=== PATIENT | male | born 1955 | race Caucasian/White ===

== ENCOUNTER 2017-05-22 11:13 | Observation (INO) | payer BC ==
[2017-05-17 14:17] LABS: HEMATOCRIT 47.3 % (40.0-51.0); HEMOGLOBIN 16.6 g/dL (13.6-17.8)
[2017-05-17 14:40] LABS: BUN (BLOOD UREA NITROGEN) 12 MG/DL (6-23); CHLORIDE, SERUM 105 MMOL/L (96-112); CO2 (CARBON DIOXIDE) 28 MMOL/L (24-34); CREATININE 0.93 MG/DL (0.70-1.30); GFR AFRICAN AMERICAN 101 ML/MIN (>=60); GFR NON AFRICAN AMERICAN 87 ML/MIN (>=60); POTASSIUM, SERUM 3.8 MMOL/L (3.5-5.3); SODIUM, SERUM 138 MMOL/L (135-148)
[2017-05-17 14:41] LABS: GLUCOSE, SERUM 126 MG/DL (60-99)
[2017-05-17 19:14] LABS: ASCORBIC ACID (UR NOT ORDER) NEG (NEG); BILIRUBIN, URINE NEGATIVE (NEG); KETONE, URINE NEGATIVE (NEG); LEUKOCYTE ESTERASE(NOT OR NEG (NEG); WBC (NOT ORDERED) (RFLEX) 1 (0-5)
[~2017-05-22] VITALS: Ht 170.2 cm; Wt 100.4 kg
--- NOTE | ~2017-05-22 | OP ---
Record Of Operation [facility] [address] [place]. [address] NAME: ZAINAB BAUER : 51 STATUS : ADM Filomena PAT#: [id number] AGE: 61 ADM/REG DATE : 05/22/17 MR#: [id number] REPORT SERV DATE: 05/22/17 DICTATED BY: SAMI SMITH JR. DATE: 05/22/17 REPORT STATUS : Draft TRANSCRIBED BY: MODMichael DATE: 05/22/17 DATE OF PROCEDURE: 05/22/2017 PREOPERATIVE DIAGNOSES: Phimosis and benign prostatic hyperplasia. POSTOPERATIVE DIAGNOSES: Phimosis, benign prostatic hyperplasia, and urethrocutaneous fistula. PROCEDURES PERFORMED: Circumcision and transurethral resection of the prostate. COMPLICATIONS: None. CONSULTATIONS: None. ANESTHESIA: General with an endotracheal tube. SPECIMENS: Prepuce and prostate chips. DRAINS: A 24-[place] 3-way Islas catheter. ESTIMATED BLOOD LOSS: None. INDICATION: Mr. Bauer is a 61-year-old gentleman who I saw in the office with phimosis and some cracking and pain of the prepuce. I suggested circumcision. However, he wanted to wait on that procedure, but did schedule a TURP for prostate enlargement and lower urinary tract symptoms. Cystoscopically, his prostate was approximately 3.5 to 4 cm in length with trilobar hypertrophy. His phimosis was retractable, yet somewhat tight. The area around the jason of the glans was somewhat erythematous, inflamed, and difficult to examine. I did place him on some steroid cream, which did improve that to some degree. 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 This is a well epithelialized fistula and has been present probably since . It is fairly large, approximately 18-B[place]an in diameter. His meatus also appears normal as well. I do not know if this is a failed attempt at hypospadias repair when he was younger or just a missed fistula from . Either way, I did not feel it appropriate to repair this fistulous tract on the same day that he had a circumcision and a TURP. This fistulous tract is very large. The urethra is very adequate in this area. I calibrated it at 28-[place]an from the meatus down the urethra past the sphincter. I think this fistula can be closed primarily and will not need any grafting. Therefore, I did not feel it necessary to cancel the circumcision portion of his operation. I did leave the room and speak to the patient's during the operation and described the situation to her and explained my reasoning process. She was in agreement with it and we moved forward with the planned circumcision and TURP. PROCEDURE IN DETAIL: After the patient was identified and proper informed consent was obtained, he was taken to the operating room. General anesthesia was performed without Record Of Operation [address] [address] NAME: ZAINAB BAUER : 51 STATUS : ADM Filomena PAT#: [id number] AGE: 61 ADM/REG DATE : 05/22/17 MR#: [id number] REPORT SERV DATE: 05/22/17 DICTATED BY: SAMI SMITH JR. DATE: 05/22/17 REPORT STATUS : Draft TRANSCRIBED BY: MACKENZIE DATE: 05/22/17 complication using an endotracheal tube. He was then prepped and draped in normal sterile fashion in the supine position. Two circumferential incisions were made around the penis both at each end of the prepuce. The prepuce was excised using electrocautery. The wound was irrigated and inspected for hemostasis and the circumcision was closed using running 3-0 chromic sutures. I placed Vaseline as a dressing. I then changed the position to lithotomy, reprepped and redraped the patient, and performed a TURP with cystoscopic examination again revealing a 3.5 to 4 cm prostatic urethra with trilobar hypertrophy, mild trabeculation in the bladder. Both ureteral orifices were in the normal position and normal size. I then performed a TURP using a 26-B[place] resectoscope resecting from the bladder neck back to the verumontanum from the 1 o'clock position around to the 11 o'clock position down to surgical capsule. The chips were removed from the bladder using an Ellik evacuator and the prostatic fossa cauterized. Once I felt that hemostasis was good and all chips had been removed, I then removed the resectoscope and placed a 24-[place] 3-way Islas catheter to continuous irrigation. The patient was awakened in the operating room, transferred to the postanesthesia care unit in stable condition. LEXI/MACKENZIE Sami Smith Jr., M.D. / [id number] CC: Sami Smith Jr., M.D.
[~2017-05-22 11:13] MED LIST: ANDROGEL; ASAB PO; BRINT10T PO; MELA3 PO; NIASPAN500 PO; PRIN5 PO; PROSCAR5 PO; RAPAFLO8 MG PO; VIAGRA100 MG PO
[2017-05-22 15:36] LABS: HEMATOCRIT 43.2 % (40.0-51.0); HEMOGLOBIN 14.6 g/dL (13.6-17.8)
[2017-05-23 05:55] LABS: HEMATOCRIT 43.2 % (40.0-51.0); HEMOGLOBIN 14.7 g/dL (13.6-17.8)
[2017-05-23] MEDS ORDERED: NORCO1 TA2 PO (09:46)
== END 2017-05-23 13:25 | disposition home health service (06) ==
LOC: ENRESERVTM → ENRESERV → ENRESERVDT → SDC 11:13 → ENPENDDIS 15:00 → 5SO 15:00 → SDC/OF 15:00 → 5SO 19:39
PROVIDERS: Urology
PROC: 0VB08ZZ Excision of Prostate, Via Natural or Artificial Opening Endoscopic (ICD-10-PCS; principal; 2017-05-22 12:45)
PROC: 0VQS0ZZ Repair Penis, Open Approach (ICD-10-PCS; 2017-05-22 12:45)
DX: N40.0 Benign prostatic hyperplasia without lower urinary tract symptoms (principal); N47.1 Phimosis; I10 Essential (primary) hypertension; Z88.0 Allergy status to penicillin; Z90.89 Acquired absence of other organs; Z98.890 Other specified postprocedural states; Z79.899 Other long term (current) drug therapy
CPT/HCPCS: 36415; 80048; 81001; 84295; 85014; 85018; 86850; 86900; 86901; 88304; 88305; 93005; A9270-GY; G0378; J0690; J2250; J2405; J2710; J3010; J3370